=== PATIENT | male | born 1950 | race Caucasian/White ===

== ENCOUNTER 2018-03-25 13:39 | Day surgery (SDC) | payer MEDICARE, OTHER ==
[2018-03-24 09:06] VITALS: BP 145/83
[2018-03-24 10:01] LABS: MICROSCOPIC INDICATED
[~2018-03-25] VITALS: Ht 185.4 cm; Wt 101.9 kg
[~2018-03-25 13:39] MED LIST: ALLO100T30 PO; AMLO10TA2 PO; AMLO5TAB2 PO; ATOR10TA PO; ATOR20TA9 PO; CARV12.52 PO; CARV12.543 PO; CHOL100015 PO; GLUCOSAMINE 1,1 EACH PO; LEVO125C2 PO; LEVO150C2 PO; LIOT5TAB3 PO; LISI30TA4 PO; LISI40TA PO; METF500T4 PO; OMEG-13 PO; PEDI1TAB46 PO; TAMS0.4C2 PO; VIT1TABL32 PO; [UNRECOGNIZED DRUG - OTHER] SL
[2018-03-25] MEDS ORDERED: LACTATED RINGERS 1,000 ML IV SCH (13:46)
[2018-03-25] MEDS ORDERED: ACETAMINOPHEN 500 MG TABLET PO ONE (14:00)
[2018-03-25] MEDS ORDERED: ONDANSETRON ODT 8 MG PO ONE (14:00)
[2018-03-25] MEDS ORDERED: GABAPENTIN 300 MG CAPSULE PO ONE (14:00)
[2018-03-25] MEDS ORDERED: FENTANYL PF 100 MCG/2ML ONE ×2 (14:42→17:45)
[2018-03-25] MEDS ORDERED: CEFTRIAXONE 1,000 MG ONE (15:41)
[2018-03-25] MEDS ORDERED: MORPHINE SULFATE 4 MG/ML, 1ML IVPush PRN (16:00)
[2018-03-25] MEDS ORDERED: ONDANSETRON 2MG/ML, 2ML IVPush PRN (16:00)
[2018-03-25] MEDS ORDERED: ALBUTEROL SULFATE 2.5 MG/3 ML NPPB PRN (16:00)
[2018-03-25] MEDS ORDERED: hydrALAzine 20 MG/ML, 1ML IV PRN (16:00)
[2018-03-25] MEDS ORDERED: FENTANYL PF 100 MCG/2ML IV PRN (16:00)
[2018-03-25] MEDS ORDERED: MIDAZOLAM 1 MG/ML, 2ML IV PRN (16:00)
[2018-03-25] MEDS ORDERED: ALBUTEROL/IPRATROPIUM 2.5MG/0.5MG, 3 ML NPPB PRN (16:00)
[2018-03-25] MEDS ORDERED: PROMETHAZINE 25 MG SUPP PR PRN (16:00)
[2018-03-25] MEDS ORDERED: MEPERIDINE/PF 25MG/0.5ML IVPush PRN (16:00)
[2018-03-25] MEDS ORDERED: LABETALOL 5MG/ML, 20ML IV PRN (16:00)
[2018-03-25] MEDS ORDERED: PROMETHAZINE 25 MG/ML, 1ML IV PRN (16:00)
[2018-03-25] MEDS ORDERED: DEXAMETHASONE 4 MG/ML, 1ML ONE (16:29)
[2018-03-25] MEDS ORDERED: CEFAZOLIN 1,000 MG ONE (16:29)
[2018-03-25] MEDS ORDERED: PROPOFOL 10 MG/ML, 20ML ONE (16:29)
[2018-03-25] MEDS ORDERED: OXYcodone 5 MG/5 ML ORAL.SOL UDC ONE ×2 (17:22→17:50)
[2018-03-25] MEDS: OXYcodone 5 MG/5 ML ORAL.SOL UDC PO PRN ×3 (17:22→22:17)
[2018-03-25] MEDS ORDERED: TAMSULOSIN 0.4 MG CAP.ER.24H PO SCH (21:00)
[2018-03-25] MEDS ORDERED: metFORMIN 500 MG TABLET PO SCH (21:00)
[2018-03-25] MEDS ORDERED: ATORVASTATIN 10 MG TABLET PO SCH (21:00)
[2018-03-26] MEDS ORDERED: LIOTHYRONINE 5 MCG TABLET PO SCH (09:00)
[2018-03-26] MEDS ORDERED: AMLODIPINE 5 MG TABLET PO SCH (09:00)
[2018-03-26] MEDS ORDERED: ALLOPURINOL 100 MG TABLET PO SCH (09:00)
== END 2018-03-25 22:26 | disposition home or self-care (01) ==
LOC: OR 13:39 → 4NOR 18:46 → OR 22:26
PROVIDERS: ATTEND Urology
DX: N20.1 Calculus of ureter (principal); I10 Essential (primary) hypertension; N40.0 Benign prostatic hyperplasia without lower urinary tract symptoms; E03.9 Hypothyroidism, unspecified; Z90.49 Acquired absence of other specified parts of digestive tract; Z96.652 Presence of left artificial knee joint; Z72.89 Other problems related to lifestyle; Z95.1 Presence of aortocoronary bypass graft
CPT/HCPCS: 50590; 52310; 81001; 82962; 87086; 93005; J0696; J1100; J2704; J3010; J7120; Q0162; J0690

== ENCOUNTER → 2018-12-01 | Outpatient (CLI) | payer MEDICARE, OTHER ==
[~2018-12-01] MED LIST changes: +AMLO-150 PO; -AMLO10TA2 PO; +AMLO10TA8 PO; -AMLO5TAB2 PO; +ATOR20TA37 PO; -ATOR20TA9 PO; +METF500T17 PO; -METF500T4 PO
== END | disposition home or self-care (01) ==
LOC: WOUND 14:23
PROVIDERS: ATTEND Nurse Practitioner Family
DX: E11.621 Type 2 diabetes mellitus with foot ulcer (principal); L97.522 Non-pressure chronic ulcer of other part of left foot with fat layer exposed; I10 Essential (primary) hypertension; E03.9 Hypothyroidism, unspecified; E78.00 Pure hypercholesterolemia, unspecified; F17.210 Nicotine dependence, cigarettes, uncomplicated; Z90.49 Acquired absence of other specified parts of digestive tract
CPT/HCPCS: 97597; G0463

== ENCOUNTER 2018-12-10 15:45 | Outpatient (CLI) | payer MEDICARE, OTHER | END 2018-12-10 23:59 | disposition home or self-care (01) | LOC: WOUND 15:45 | PROVIDERS: ATTEND Podiatrist Foot & Ankle Surgery | DX: E11.621 Type 2 diabetes mellitus with foot ulcer (principal); L97.522 Non-pressure chronic ulcer of other part of left foot with fat layer exposed; L84 Corns and callosities; I10 Essential (primary) hypertension; E03.9 Hypothyroidism, unspecified; E78.00 Pure hypercholesterolemia, unspecified; F17.210 Nicotine dependence, cigarettes, uncomplicated; Z90.49 Acquired absence of other specified parts of digestive tract | CPT/HCPCS: 97597 ==

== ENCOUNTER → 2018-12-10 | Outpatient (CLI) | payer MEDICARE, OTHER | END | disposition home or self-care (01) | LOC: CVU 13:13 | PROVIDERS: ATTEND Nurse Practitioner Family | DX: E11.621 Type 2 diabetes mellitus with foot ulcer (principal); L97.522 Non-pressure chronic ulcer of other part of left foot with fat layer exposed; R60.0 Localized edema | CPT/HCPCS: 93922; 93925; 93970 ==

== ENCOUNTER → 2018-12-24 | Outpatient (CLI) | payer MEDICARE, OTHER | END | disposition home or self-care (01) | LOC: WOUND 08:10 | PROVIDERS: ATTEND Podiatrist Foot & Ankle Surgery | DX: E11.621 Type 2 diabetes mellitus with foot ulcer (principal); L97.522 Non-pressure chronic ulcer of other part of left foot with fat layer exposed; I10 Essential (primary) hypertension; E03.9 Hypothyroidism, unspecified; E78.00 Pure hypercholesterolemia, unspecified; F17.210 Nicotine dependence, cigarettes, uncomplicated; Z90.49 Acquired absence of other specified parts of digestive tract | CPT/HCPCS: 97597 ==

== ENCOUNTER 2019-01-07 09:13 | Outpatient (CLI) | payer MEDICARE, OTHER | END 2019-01-07 23:59 | disposition home or self-care (01) | LOC: WOUND 09:13 | PROVIDERS: ATTEND Podiatrist Foot & Ankle Surgery | DX: E11.621 Type 2 diabetes mellitus with foot ulcer (principal); L97.522 Non-pressure chronic ulcer of other part of left foot with fat layer exposed; L84 Corns and callosities; E03.9 Hypothyroidism, unspecified; I10 Essential (primary) hypertension; E78.00 Pure hypercholesterolemia, unspecified; F17.210 Nicotine dependence, cigarettes, uncomplicated; Z90.49 Acquired absence of other specified parts of digestive tract | CPT/HCPCS: G0463 ==

== ENCOUNTER 2019-03-03 15:27 | Outpatient (CLI) | payer MEDICARE, OTHER ==
[2019-03-03 16:24] LABS: ANION GAP 4 mmol/L (5-15); CALCIUM 9.8 mg/dL (8.5-10.1); CHLORIDE 107 mmol/L (98-107); CREATININE 1.28 mg/dL (0.7-1.3)
== END 2019-03-03 23:59 | disposition home or self-care (01) ==
LOC: CFH 15:27
PROVIDERS: ATTEND Internal Medicine Cardiovascular Disease
DX: E78.5 Hyperlipidemia, unspecified (principal); I10 Essential (primary) hypertension; E11.9 Type 2 diabetes mellitus without complications
CPT/HCPCS: 36415; 80048

== ENCOUNTER → 2020-11-23 | Outpatient (CLI) | payer MEDICARE, OTHER ==
[~2020-11-23] MED LIST changes: +ALLO300T PO; +AMLO-211 PO; -AMLO10TA8 PO; +BENA40TA3 PO; +CALC-126 PO; +FINA5TAB4 PO; +FISH1CAP PO; +LIOT5TAB11 PO; -LIOT5TAB3 PO; +MELO15TA24 PO; +MULT-167 PO; +VIT1TABL34 PO
[2020-11-23 16:36] LABS: BASOPHILS % (AUTO) 1 % (0-1); EOSINOPHILS % (AUTO) 2 % (1-7); LYMPHOCYTES % (AUTO) 25 % (22-44); MEAN CORPUSCULAR HEMOGLOBIN 32.5 pg (27.5-34.5); MEAN CORPUSCULAR HGB CONC 33.7 g/dL (33.2-36.2); MEAN PLATELET VOLUME 9.8 fL (7.4-10.4); MONOCYTES % (AUTO) 8 % (2-9); NEUTROPHILS % (AUTO) 64 % (42-75); PLATELET COUNT 233 x10^3/uL (130-400); RED BLOOD COUNT 4.51 x10^6/uL (4.38-5.82); RED CELL DISTRIBUTION WIDTH 15.1 % (9.4-14.8)
[2020-11-23 16:39] LABS: MD NO
[2020-11-23 16:43] LABS: INTERNATIONAL NORMALIZED RATIO 0.95 (0.93-1.1); PROTHROMBIN TIME 10.1 Seconds (9.6-11.5)
[2020-11-23 16:49] LABS: MICROSCOPIC AUTO
[2020-11-23 17:18] LABS: ALANINE AMINOTRANSFERASE 46 U/L (12-78); ALBUMIN 3.4 g/dL (3.4-5.0); ANION GAP 7 mmol/L (5-15); CALCIUM 10.6 mg/dL (8.5-10.1); CHLORIDE 108 mmol/L (98-107); CREATININE 1.25 mg/dL (0.7-1.3)
[2020-11-23 17:21] LABS: ALKALINE PHOSPHATASE 100 U/L (45-117); BILIRUBIN,TOTAL 0.5 mg/dL (0.2-1.0); TOTAL PROTEIN 6.6 g/dL (6.4-8.2)
== END | disposition home or self-care (01) ==
LOC: STAR 14:13
PROVIDERS: ATTEND Urology
DX: Z01.818 Encounter for other preprocedural examination (principal); Z12.5 Encounter for screening for malignant neoplasm of prostate; N20.0 Calculus of kidney; I48.91 Unspecified atrial fibrillation
CPT/HCPCS: 80053; 81001; 85025; 85610; 87086; 87635; 93005; G0103

== ENCOUNTER 2020-11-29 09:43 | Day surgery (SDC) | payer MEDICARE, OTHER ==
[~2020-11-29] VITALS: Ht 185.4 cm; Wt 118.0 kg
[2020-11-29 10:10] VITALS: BP 162/98
[2020-11-29] MEDS ORDERED: CHLORHEXIDINE 15 ML UDC ONE (10:18)
[2020-11-29] MEDS ORDERED: LACTATED RINGERS 1,000 ML IV SCH (10:30)
[2020-11-29] MEDS ORDERED: CHLORHEXIDINE 15 ML UDC MM ONE (10:30)
[2020-11-29] MEDS ORDERED: PROMETHAZINE 25 MG/ML, 1ML IVPush PRN (11:30)
[2020-11-29] MEDS ORDERED: ONDANSETRON 2MG/ML, 2ML IVPush PRN (11:30)
[2020-11-29] MEDS ORDERED: LABETALOL 5MG/ML, 20ML IV PRN (11:30)
[2020-11-29] MEDS ORDERED: hydrALAzine 20 MG/ML, 1ML IV PRN (11:30)
[2020-11-29] MEDS ORDERED: ACETAMINOPHEN 325 MG TABLET PO PRN (11:30)
[2020-11-29] MEDS ORDERED: OXYcodone 5 MG/5 ML ORAL.SOL UDC PO PRN (11:30)
[2020-11-29] MEDS ORDERED: HYDROmorphone 1 MG/ML, 1ML INJ IVPush PRN (11:30)
[2020-11-29] MEDS ORDERED: FENTANYL PF 100 MCG/2ML IV PRN (11:30)
[2020-11-29] MEDS ORDERED: FENTANYL PF 250 MCG/5ML ONE (12:04)
[2020-11-29] MEDS ORDERED: MIDAZOLAM 1 MG/ML, 2ML ONE (12:04)
[2020-11-29] MEDS ORDERED: DEXAMETHASONE 4 MG/ML, 5ML ONE (12:31)
[2020-11-29] MEDS ORDERED: CEFAZOLIN 1,000 MG ONE ×2 (12:32)
[2020-11-29] MEDS ORDERED: PROPOFOL 10 MG/ML, 20ML ONE (13:52)
[2020-11-29] MEDS ORDERED: ONDANSETRON 2MG/ML, 2ML ONE (13:52)
== END 2020-11-29 16:30 | disposition home or self-care (01) ==
LOC: OUT 09:43
PROVIDERS: ATTEND Urology
DX: N20.0 Calculus of kidney (principal); I10 Essential (primary) hypertension; E11.9 Type 2 diabetes mellitus without complications; E78.00 Pure hypercholesterolemia, unspecified; E03.9 Hypothyroidism, unspecified; F17.210 Nicotine dependence, cigarettes, uncomplicated; E66.9 Obesity, unspecified; Z68.34 Body mass index [BMI] 34.0-34.9, adult; Z79.899 Other long term (current) drug therapy; Z72.89 Other problems related to lifestyle; Z98.84 Bariatric surgery status; Z98.890 Other specified postprocedural states; Z82.49 Family history of ischemic heart disease and other diseases of the circulatory system
CPT/HCPCS: 50590; 82962; J0690; J1100; J2250; J2405; J2704; J3010; J7120